=== PATIENT | female | born 1955 | race Caucasian/White ===

== ENCOUNTER → 2023-01-14 | Emergency (ER) | payer OTHER ==
[~2023-01-14] VITALS: Ht 162.6 cm; Wt 49.9 kg
[~2023-01-14] MED LIST: CHLO25CA22 PO; IBUPROFEN 600 MG TABLET ONE; IV NORMAL SALINE 1000 ML BAG IV ONE; KETOROLAC TROMETHAMINE 15 MG INJ ONE; LORAZEPAM 2 MG/1 ML VIAL IV ONE; LORAZEPAM 2 MG/1 ML VIAL ONE; MORPHINE SULFATE 4 MG/1 ML DISP.SYRIN ONE
--- NOTE | 2023-01-14 13:00 | NUR ---
PT RECEIVED IN NAD; VSS. PT COMPLAINS OF JITTERINESS D/T ALCOHOL RELAPSE. DENIES PAIN OR OTHER SYMPTOMS.
--- NOTE | 2023-01-14 13:18 | NUR ---
Social Work consult was requested for a patient in the ER to assess need for substance abuse resources. Patient is a 73-year-old female that is alert and oriented X3. Patient presents with depressed mood and congruent affect. Patient appears lethargic. Patient states she does not have a primary contact. Patient states she lives alone in a house at [address] [place] [address]. 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 Patient states she has a history of alcohol abuse and last drank on Tuesday night. There is no toxicology report and provided the patient resources for treatment from [facility] [id number] ([phone]), [facility] [id number] ([phone]), [place] [address] ([phone]). Patient was appreciative of the resources and states she goes to AA meetings and has had a sponsor for 4 years. Patient denies a history of a psychiatric diagnosis and states she sees a therapist every three months and takes medication. Patient denies suicidal or homicidal ideation. Patient states her plan for discharge is to go back home to [address] [place] [address].
[2023-01-14 13:29] LABS: *BILIRUBIN,URIN NEGATIVE (NEGATIVE); *BLOOD, URINE NEGATIVE (NEGATIVE); *CLARITY,URINE CLEAR (CLEAR); *COLOR,URINE YELLOW (YELLOW); *KETONES,URINE 1+ (NEGATIVE); *UROBILINOGEN,URINE 0.2 E.U./dl (NORMAL); LEUKOCYTE ESTERASE ,URINE NEGATIVE (NEGATIVE); NITRITE, URINE NEGATIVE (NEGATIVE); PH,URINE 6.5 (5.0-8.0); UGLUCOSE NEGATIVE (NEGATIVE)
[2023-01-14 13:40] LABS: HEMATOCRIT 40.1 % (31.2-41.9); MEAN CORPUSCULAR HEMOGLOBIN 31.3 uug (24.7-32.8); MEAN CORPUSCULAR VOLUME 93.4 fL (75.5-95.3); PLATELET COUNT (AUTO) 229 K/uL (179-408)
[2023-01-14 14:10] LABS: CARBON DIOXIDE 26 mmol/L (21-32); CHLORIDE 95 mmol/L (98-107); CREATININE 1.1 mg/dL (0.6-1.3); GLUCOSE 240 mg/dL (74-106); POTASSIUM 3.6 mmol/L (3.5-5.1); UREA NITROGEN, BLOOD 17 mg/dL (7-18)
[2023-01-14 14:11] LABS: ETHANOL < 3 MG/DL (0-0)
[2023-01-14 14:13] LABS: MAGNESIUM 2.1 mg/dL (1.8-2.4); PHOSPHOROUS 2.2 mg/dL (2.5-4.9)
[2023-01-14 14:17] LABS: ALANINE AMINOTRANSFERASE 44 U/L (14-59); ALKALINE PHOSPHATASE 72 U/L (50-136); ASPARTATE AMINOTRANSFERASE 44 U/L (15-37); BILIRUBIN,DIRECT 0.3 mg/dL (0.0-0.2); TOTAL PROTEIN, SERUM 7.1 g/dL (6.4-8.2)
--- NOTE | 2023-01-14 16:49 | NUR ---
IV removed. Catheter intact and site benign. Pressure and 4x4 gauze applied to site. No bleeding noted.
--- NOTE | 2023-01-14 16:49 | NUR ---
Patient discharged to home in stable condition. Written and verbal after care instructions given. Patient verbalizes understanding of instructions. Stressed follow up or return to ER for worsening s/s.
[2023-01-14 16:50] VITALS: BP 112/67
== END | disposition home or self-care (01) ==
LOC: ER 12:42 → EDBD 12:42
DX: F10.239 Alcohol dependence with withdrawal, unspecified (principal); Y90.0 Blood alcohol level of less than 20 mg/100 ml
CPT/HCPCS: 80076; 80048; 81003; 83735; 84100; 85025; 36415; 99283; 96361; 96374; 96376; 80320; J2060 ×2; J7040; A4663; G0480; J1885; J2270